=== PATIENT | male | born 1955 | race Caucasian/White ===

== ENCOUNTER → 2017-06-27 | Outpatient (CLI) | payer OTHER ==
[~2017-06-27] MED LIST: ACET-1757 PO; AMIT10TA PO; ASPI-515 PO; ASPI325T80 PO; ASPI81TA50 PO; GLUC1CAP48 PO; HYDR2TAB29 PO; MELA3TAB2 PO; METF500T4 PO; METH750T87 PO; NIAC500T85 PO; NITR0.4T28 SL; NORT10CA PO; OMEG1CAP23 PO; REGADENOSON 0.4 MG/5 ML SYRINGE ONE; ROSU20TA PO; ROSU5TAB PO; SENN1TAB67 PO
== END | disposition home or self-care (01) ==
LOC: CFH 08:13
PROVIDERS: ATTEND Internal Medicine Cardiovascular Disease
DX: I25.10 Atherosclerotic heart disease of native coronary artery without angina pectoris (principal)
CPT/HCPCS: 78452; 93017; A9502; J2785

== ENCOUNTER 2018-06-20 22:33 | Observation (INO) | payer OTHER ==
[~2018-06-20] VITALS: Ht 172.7 cm; Wt 87.7 kg
[~2018-06-20 22:33] MED LIST changes: +METF500T17 PO; -METF500T4 PO; -REGADENOSON 0.4 MG/5 ML SYRINGE ONE
[2018-06-20] MEDS ORDERED: EZET10TA18 PO (22:53)
[2018-06-20] MEDS ORDERED: NITROGLYCERIN SINGLE TAB 0.4 MG SL PRN (23:00)
[2018-06-20] MEDS ORDERED: SODIUM CHLORIDE FLUSH 10ML SYR IVF ONE (23:00)
[2018-06-20 23:08] LABS: BASOPHILS # (AUTO) 0.02 x10^3/uL (0-0.1); BASOPHILS % (AUTO) 0 % (0-1); EOSINOPHILS % (AUTO) 2 % (1-7); LYMPHOCYTES # (AUTO) 3.08 x10^3/uL (1-3.4); LYMPHOCYTES % (AUTO) 35 % (22-44); MD NO; MEAN CORPUSCULAR HEMOGLOBIN 31.1 pg (27.5-34.5); MEAN CORPUSCULAR HGB CONC 34.1 g/dL (33.2-36.2); MEAN CORPUSCULAR VOLUME 91.2 fL (81-97); MEAN PLATELET VOLUME 7.7 fL (7.4-10.4); MONOCYTES # (AUTO) 0.85 x10^3/uL (0.2-0.8); MONOCYTES % (AUTO) 10 % (2-9); NEUTROPHILS # (AUTO) 4.78 x10^3/uL (1.8-6.8); NEUTROPHILS % (AUTO) 54 % (42-75); PLATELET COUNT 173 x10^3/uL (130-400); RED BLOOD COUNT 4.98 x10^6/uL (4.38-5.82); RED CELL DISTRIBUTION WIDTH 14.1 % (9.4-14.8)
[2018-06-20 23:10] LABS: ALBUMIN 3.8 g/dL (3.4-5.0); ANION GAP 9 mmol/L (5-15); CALCIUM 8.5 mg/dL (8.5-10.1); CHLORIDE 109 mmol/L (98-107); CREATININE 1.07 mg/dL (0.7-1.3)
[2018-06-20 23:23] LABS: TROPONIN I < 0.015 ng/mL (0.000-0.045)
[2018-06-21] MEDS ORDERED: POLYETHYLENE GLYCOL 17 GM PACKET PO PRN (01:00)
[2018-06-21] MEDS ORDERED: OXYcodone IR 5MG TABLET PO PRN (01:00)
[2018-06-21] MEDS ORDERED: ONDANSETRON ODT 4 MG PO PRN (01:00)
[2018-06-21] MEDS ORDERED: ACETAMINOPHEN 325 MG TABLET PO PRN (01:00)
[2018-06-21] MEDS ORDERED: ONDANSETRON 2MG/ML, 2ML IVPush PRN (01:00)
[2018-06-21] MEDS ORDERED: DOCUSATE 100 MG CAPSULE PO PRN (01:00)
[2018-06-21] MEDS ORDERED: NITROGLYCERIN 0.4 MG BOTTLE (25 TABS) SL PRN (01:00)
[2018-06-21] MEDS ORDERED: BISACODYL 10 MG SUPP PR PRN (01:00)
[2018-06-21] MEDS ORDERED: PROMETHAZINE 25 MG/ML, 1ML IM PRN (01:00)
[2018-06-21] MEDS ORDERED: morphine SULFATE 10 MG/ML, 1ML IVPush PRN (01:00)
[2018-06-21] MEDS ORDERED: LABETALOL 5MG/ML, 20ML IVPush PRN (01:00)
[2018-06-21] MEDS ORDERED: hydrALAzine 20 MG/ML, 1ML IVPush PRN (01:00)
[2018-06-21 01:36] LABS: HEMOGLOBIN A1C 6.8 % (4.2-6.3)
[2018-06-21 01:38] LABS: FREE T4 (FREE THYROXINE) 0.99 ng/dL (0.76-1.46); THYROID STIMULATING HORMONE 2.81 mIU/L (0.358-3.740)
[2018-06-21 01:42] VITALS: BP 137/92
[2018-06-21] MEDS: HEPARIN 5,000 UNITS/ML, 1ML SQ SCH ×2 (01:52→10:00)
[2018-06-21] MEDS: SODIUM CHLORIDE 0.9% 1,000 ML IV SCH ×2 (01:52→10:48)
[2018-06-21 02:02] LABS: BASOPHILS # (AUTO) 0.04 x10^3/uL (0-0.1); BASOPHILS % (AUTO) 0 % (0-1); EOSINOPHILS # (AUTO) 0.22 x10^3/uL (0-0.4); EOSINOPHILS % (AUTO) 3 % (1-7); LYMPHOCYTES # (AUTO) 3.07 x10^3/uL (1-3.4); LYMPHOCYTES % (AUTO) 38 % (22-44); MD NO; MEAN CORPUSCULAR HGB CONC 33.7 g/dL (33.2-36.2); MEAN CORPUSCULAR VOLUME 91.8 fL (81-97); MEAN PLATELET VOLUME 7.4 fL (7.4-10.4); MONOCYTES # (AUTO) 0.85 x10^3/uL (0.2-0.8); MONOCYTES % (AUTO) 10 % (2-9); NEUTROPHILS # (AUTO) 3.98 x10^3/uL (1.8-6.8); NEUTROPHILS % (AUTO) 49 % (42-75); PLATELET COUNT 169 x10^3/uL (130-400); RED BLOOD COUNT 4.94 x10^6/uL (4.38-5.82); RED CELL DISTRIBUTION WIDTH 13.8 % (9.4-14.8)
[2018-06-21 02:14] LABS: ALANINE AMINOTRANSFERASE 32 U/L (12-78); ALBUMIN 3.7 g/dL (3.4-5.0); ANION GAP 8 mmol/L (5-15); CALCIUM 8.4 mg/dL (8.5-10.1); CHLORIDE 108 mmol/L (98-107); CHOLESTEROL, TOTAL 144 mg/dL (140-239)
[2018-06-21 02:16] LABS: ALKALINE PHOSPHATASE 62 U/L (45-117); BILIRUBIN,TOTAL 0.3 mg/dL (0.2-1.0); HDL CHOL % 25 % (26-37); HDL CHOLESTEROL (DIRECT) 36 mg/dL (40-60); LDL CHOLESTEROL,CALCULATED 71 mg/dL (54-169); TRIGLYCERIDES 184 mg/dL (50-200); VLDL CHOLESTEROL 37 mg/dL (0-25)
[2018-06-21 02:18] LABS: TROPONIN I < 0.015 ng/mL (0.000-0.045)
[2018-06-21] MEDS ORDERED: ASPIRIN 325 MG TABLET EC PO SCH (06:00)
[2018-06-21 06:22] LABS: TROPONIN I < 0.015 ng/mL (0.000-0.045)
[2018-06-21] MEDS: INSULIN LISPRO 100 UNITS/ML, PEN SQ-INSULIN SCH ×2 (07:00→11:00)
[2018-06-21 07:29] VITALS: BP 123/82
[2018-06-21] MEDS ORDERED: EZETIMIBE 10 MG TABLET PO SCH (09:00)
[2018-06-21] MEDS ORDERED: LOSARTAN 25MG TABLET PO SCH (09:00)
[2018-06-21 13:17] VITALS: BP 126/85
[2018-06-21] MEDS ORDERED: ATORVASTATIN 40 MG TABLET PO SCH (21:00)
[2018-06-21] MEDS ORDERED: MELATONIN 3 MG TABLET PO SCH (21:00)
== END 2018-06-21 14:05 | disposition home or self-care (01) ==
LOC: ED 23:39 → INTOOBSV 06-21 00:11 → EDIP 06-21 00:11 → 5SO 06-21 01:20 → DCLOUNGE 06-21 13:56
PROVIDERS: ADMIT Internal Medicine; ATTEND Internal Medicine
DX: R07.89 Other chest pain (principal); E78.5 Hyperlipidemia, unspecified; E11.9 Type 2 diabetes mellitus without complications; I25.10 Atherosclerotic heart disease of native coronary artery without angina pectoris; I10 Essential (primary) hypertension; Z79.84 Long term (current) use of oral hypoglycemic drugs; F17.290 Nicotine dependence, other tobacco product, uncomplicated; Z95.5 Presence of coronary angioplasty implant and graft; Z95.818 Presence of other cardiac implants and grafts
CPT/HCPCS: 36415; 71045; 78452; 80048; 80053; 80061; 82040; 82962; 83036; 83735; 84439; 84443; 84484; 85025; 93005; 93017; 96372; 99285; A9502; C9898; G0378; J1644; J7030